=== PATIENT | male | born 1985 | race Caucasian/White ===

== ENCOUNTER 2023-07-29 21:53 | Emergency (ER) | payer OTHER ==
[2023-07-29 23:02] LABS: BASOPHILS # (AUTO) 0.1 10^3/uL (0.0-0.1); EOSINOPHILS # (AUTO) 0.4 10^3/uL (0.0-0.7); EOSINOPHILS % (AUTO) 5.3 %; HCT - HEMATOCRIT 41.8 % (42.0-52.0); HGB - HEMOGLOBIN 14.3 g/dL (14.0-18.0); LYMPHOCYTES # (AUTO) 2.9 10^3/uL (1.5-3.5); LYMPHOCYTES % (AUTO) 36.7 %; MEAN CORPUSCULAR HEMOGLOBIN 30.1 pg (27.0-31.0); MEAN CORPUSCULAR HGB CONC 34.2 g/dL (32.0-36.0); MONOCYTES # (AUTO) 0.7 10^3/uL (0.0-1.0); MONOCYTES % (AUTO) 8.8 %; NEUTROPHILS # (AUTO) 3.8 10^3/uL (1.5-6.6); NEUTROPHILS % (AUTO) 47.9 %; PLT - PLATELET COUNT 223 10^3/uL (130-450); RED BLOOD COUNT 4.75 10^6/uL (4.70-6.10); RED CELL DISTRIBUTION WIDTH 11.9 % (12.0-15.0); WHITE BLOOD COUNT 7.9 x10^3/uL (4.8-10.8)
[2023-07-29 23:13] LABS: ALBUMIN 4.6 g/dL (3.2-5.5); ALBUMIN/GLOBULIN RATIO 1.6 (1.0-2.2); BILIRUBIN,TOTAL 0.6 mg/dL (0.2-1.0); CALCIUM 9.7 mg/dL (8.5-10.3); POTASSIUM 3.7 mmol/L (3.5-4.5); TOTAL PROTEIN 7.4 g/dL (6.4-8.9)
[2023-07-30 00:55] LABS: BILIRUBIN,URINE NEGATIVE (NEGATIVE); GLUCOSE, URINE (UA) NEGATIVE (NEGATIVE); KETONES,URINE (UA) NEGATIVE (NEGATIVE); LEUKOCYTE ESTERASE, URINE NEGATIVE (NEGATIVE); NITRITE,URINE NEGATIVE (NEGATIVE); OCCULT BLOOD,URINE NEGATIVE (NEGATIVE); PH,URINE 6.5 PH (5.0-7.5); PROTEIN,URINE NEGATIVE (NEGATIVE); UROBILINOGEN,URINE 0.2 (NORMAL) E.U./dL (NORMAL)
--- NOTE | 2023-07-30 02:06 | ED Physician Documentation ---
History of Present Illness - Stated complaint Stated Complaint: LOWER BACK PX,,N/V - Chief complaint Chief Complaint: General - History obtained from History obtained from: Patient - Additonal information Additional information: HPI from patient. Patient c/o right flank pain radiating to right paralumbar region associated with nausea but no vomiting. Symptoms have been episodic x 2-3 days without inciting event nor exacerbating/ameliorating factors. He has had recurrent back pains in the past but this feels different in location and character. Also had right testicular pain earlier today but he feels this has resolved by the time of this exam. Denies fever, hematuria, urinary frequency Review of Systems Constitutional: reports: Reviewed and negative Cardiac: reports: Reviewed and negative Respiratory: reports: Reviewed and negative GI: reports: Abdominal Pain, Nausea. denies: Abdominal Swelling, Vomiting, Constipation, Diarrhea, Hematemesis, Bloody / black stool : denies: Dysuria, Frequency, Hematuria Skin: denies: Rash Musculoskeletal: reports: Back pain Neurologic: denies: Focal weakness, Numbness PD PAST MEDICAL HISTORY - Past Medical History Past Medical History: No Cardiovascular: None Respiratory: None Neuro: None Endocrine/Autoimmune: None GI: None : None HEENT: None Psych: None Musculoskeletal: None Derm: None - Past Surgical History Past Surgical History: No - Present Medications Home Medications: Ambulatory Orders Medication Instructions Recorded Confirmed No Known Home Medications 07/30/23 07/30/23 - Allergies Allergies/Adverse Reactions: Allergies Allergy/AdvReac Type Severity Reaction Status Date / Time No Known Drug Allergies Allergy Verified 07/29/23 22:01 - Social History Does the pt smoke?: No Smoking Status: Never smoker Does the pt drink ETOH?: No Does the pt have substance abuse?: No - Immunizations Immunizations are current?: Yes PD ED PE NORMAL - Vitals Vital signs reviewed: Yes - General General: Alert and oriented X 3, No acute distress, Well developed/nourished - Cardiac Cardiac: RRR, No murmur - Respiratory Respiratory: No respiratory distress, Clear bilaterally - Abdomen Abdomen: Normal bowel sounds, Soft, Non tender, Non distended PD ED PE EXPANDED - Male Male : Normal Exam, Circumcised, Testes descended leatha, Normal lie/cremastaric. No: Tenderness Results - Vitals Vitals: Oxygen O2 Source Room air - Labs Labs: Laboratory Tests 07/29/23 07/29/23 07/29/23 22:08 22:54 22:54 WBC 7.9 RBC 4.75 Hgb 14.3 Hct 41.8 L MCV 88.0 MCH 30.1 MCHC 34.2 RDW 11.9 L Plt Count 223 MPV 10.0 Neut # (Auto) 3.8 Lymph # (Auto) 2.9 [place] # (Auto) 0.7 Eos # (Auto) 0.4 Baso # (Auto) 0.1 Absolute Nucleated RBC 0.00 Nucleated RBC % 0.0 Sodium 136 Potassium 3.7 Chloride 103 Carbon Dioxide 26 Anion Gap 7.0 BUN 13 Creatinine 1.0 Estimated GFR (MDRD) 84 L Glucose 97 Calcium 9.7 Total Bilirubin 0.6 AST 23 ALT 21 Alkaline Phosphatase 65 Total Protein 7.4 Albumin 4.6 Globulin 2.8 Albumin/Globulin Ratio 1.6 Lipase 31 Urine Color YELLOW Urine Clarity CLEAR Urine pH 6.5 Ur Specific [place] <=1.005 Urine Protein NEGATIVE Urine Glucose (UA) NEGATIVE Urine Ketones NEGATIVE Urine Occult Blood NEGATIVE Urine Nitrite NEGATIVE Urine Bilirubin NEGATIVE Urine Urobilinogen 0.2 (NORMAL) Ur Leukocyte Esterase NEGATIVE Ur Microscopic Review NOT INDICATED Urine Culture Comments NOT INDICATED - Rads (name of study) CT A/P Relevant Findings:: Prelim report reviewed, See rad report PD Medical Decision Making - ED course Complexity details: reviewed results, re-evaluated patient, considered differential, d/w patient ED course: Normal CBC, ER abdominal panel, and UA. HPI is suggestive of renal colic to the point that CT A/P undertaken despite lack of hematuria. The CT is unremarkable although increased stool burden is noted. Patient declines analgesia throughout stay. Results d/w patient. We also discussed the testicular pain and the need to return immediately if this reoccurs, might need US in such a situation (US is not available at the time of this encounter, but the pain had resolved just prior to H+P). Etiology of patient's symptoms is not apparent at this time. Return precautions are reviewed. Departure - Departure Disposition: 01 Home, Self Care Clinical Impression: Flank pain Condition: Good Instructions: ED Flank Pain Uncertain Cause Follow-Up: ROSETTE BOWMAN DO [Primary Care Provider] - Comments: There were no concerning nor diagnostic findings on tonight's test, including the blood test, urinalysis, and the CT scan of your abdomen and pelvis. As we discussed, there was a large amount of stool in your colon on the CT scan; this is might be due to constipation, and you can try an [id number] laxative such as miralax to see if this relieves your flank pain. Forms: PCP List Discharge Date/Time: 07/30/23 06:29
[2023-07-30 02:33] LABS: CLARITY,URINE CLEAR (CLEAR)
[2023-07-30 06:31] VITALS: BP 114/80; O2SAT 100
--- NOTE | 2023-07-30 11:35 | CT Report ---
PROCEDURE: Abdomen/Pelvis WO INDICATIONS: right flank pain TECHNIQUE: A CT scan of the abdomen and pelvis was performed without the use of intravenous contrast. Images we re recorded and evaluated at appropriate window settings. Reformats: coronal and sagittal. For radiat ion dose reduction, the following was used: automated exposure control, adjustment of mA and/or kV ac cording to patient size. COMPARISON: None. FINDINGS: Image quality: Diagnostic Lower chest: Unremarkable lung bases Liver: Unremarkable liver Gallbladder and biliary system: Unremarkable, nondilated Pancreas: Unremarkable Spleen: Nonenlarged Adrenals: No discrete nodule Kidneys: No hydronephrosis or calcified obstructing stone identified. Lower pelvic right phlebolith. Limited evaluation of the solid organs in particular from noncontrast CT Vessels and lymph nodes: No abdominal aortic aneurysm. No pathologic lymph nodes by size criteria. Bowel and peritoneum: No evidence of small bowel obstruction, drainable abscess/pathologic ascites. A ppendix appears nondilated. Moderate stool burden. Body wall: Tiny fat-containing umbilical hernia. Pelvis: Bladder is unremarkable. The prostate is not well evaluated on this study. Bones: No acute or suspicious osseous finding. IMPRESSION: No acute abdominopelvic abnormality on this noncontrast imaging. No calcified stones or hydronephrosi s. Moderate stool burden. Agree with preliminary report. Reviewed by: Layton Zamudio MD on 07/30/2023 11:33 AM PST Approved by: Layton Zamudio MD on 07/30/2023 11:33 AM PST Station ID: [id number]
== END 2023-07-30 06:29 | disposition home or self-care (01) ==
LOC: ED 21:53
DX: R10.9 Unspecified abdominal pain (principal)
CPT/HCPCS: 36415; 80053; 81001; 81003; 83690; 85025; 87086; 99283; 99284

== ENCOUNTER 2023-09-14 10:39 | Outpatient (CLI) | payer OTHER ==
--- NOTE | 2023-09-14 11:14 | Sleep Patient Instructions ---
Sleep Center Visit Summary - Patient Visit Information Reason for Visit: Initial consult for evaluation of sleep disordered breathing and other sleep issues. - Patient Instructions Instructions Attached: Sleep Study Home Monitor Additional Instructions: You will be completing a sleep study, either an in-lab polysomnography (PSG) or home sleep study (HST). You will follow-up in the sleep care office after the sleep study is completed to hear the results and talk about therapy, if needed. You will be called by our office staff to schedule this appointment, but you may contact us with any questions. - Clinic Information Contact: [facility] [address] [place] [address] [email or web address] T: [phone]
--- NOTE | 2023-09-14 11:18 | SLEEP CARE CONSULTATION ---
Information from patient questionnaire entered by Shante Valencia. I have reviewed and concur with the information entered by Shante Valencia. This document represents the service I personally performed and the decisions made by me, Vee Ordonez ARNP. History of Present Illness Service Date and Time: 09/14/2023 1039 Reason for Visit: New patient Chief Complaint: reports: Unrefreshed sleep, Snoring, Fatigue, Frequent awakenings at night Date of Onset: FEW YRS Usual bedtime: 8PM-12AM Time it takes to fall asleep: VERY SHORT TIME Snores at night: Yes Observed to quit breathing while asleep: Yes Sleeps alone due to snoring: No Number of times waking at night: 1-2 Reasons for waking at night: reports: Choking, Snoring, Gasping for air, Pain, Bathroom Toss, Turn, or Twitch while sleeping: Yes Recalls having dreams: Yes Usually gets out of bed at: 5AM; weekends can sleep til 0800 when he can sleep in Feels refreshed in the morning: No Morning headache: Yes (2-3 times a week; resolve quickly- about 1 hr) Sleepy or fatigued during the day: Yes Ever fallen asleep while driving: No Takes day naps: Yes (Sat/Sun only if son naps) Dreams during day naps: Yes Prior sleep studies: No Additional HPI information: I had the pleasure of seeing JONE MONCADA today regarding the possibility of him having a sleep disorder. His current complaints are unrefreshed sleep, snoring, fatigue and frequent night awakenings. He says he was referred because of his snoring and occasional gasping in his sleep heard by his . His snoring is more "heavy" when laying on his back. His says she can still hear him when he falls asleep on the couch when she is in the bedroom. He never wakes up feeling rested in the mornings. He thinks it is mostly due to his son who interrupts their sleep. He states he can go to sleep fairly quickly whenever he lays down. He usually is very exhausted by the time he can lay down and falls asleep after they put their son down at 7 PM. Sometimes he stays up longer just because he has things he needs to take care of around the house. He does feel like he wakes up a few times a night and has woke up due to his own snoring. - Parasomnia Symptoms Ever been unable to move upon waking from sleep: No Walks in sleep: No Talks in sleep: Yes Ever acted out dreams in sleep: No Ever felt weak in the knees when startled or emotional: No Bothered by creepy, crawly, restless sensations in legs: Yes (about 1 time a year, pins/needles) Problems with memory or concentration: No Subjective Initial [place] Sleepiness Scale score: 12 (09/11/23) Past Medical History Past Medical History: reports: Anxiety, Depression Social History The patient's occupation is a AM. Patient is Single and lives in . Have you smoked in the past 12 months: No (vapes daily for 7 years) Alcohol use: No Caffeine use: Yes Caffeine amount and frequency: 3-4 DAILY Family History Family history of sleep disordered breathing: No Family Hx Sleep Apnea: Father: Snoring Allergies and Home Medications Known drug allergies: No Drug allergies reviewed: Yes Home medication list reviewed: Yes (as listed) Allergy and home medication list: Allergies No Known Drug Allergies Allergy (Verified 09/13/23 10:52) Home Medications Medication Instructions Recorded Confirmed Last Taken Type Ibuprofen See Rx Instructions .ROUTE .COMPLEX 09/14/23 09/14/23 Unknown History Review of Systems Weight gain over past 5 years: 10 Cardiovascular: denies: high blood pressure Gastrointestinal: reports: nausea, vomitting, diarrhea. denies: heartburn Neurological: denies: headaches, head trauma Psychiatric: reports: anxiety, depression Ear/Nose/Throat: reports: wisdom teeth removed. denies: injury to nose, tonsillectomy Endocrine: reports: sluggishness Musculoskeletal: reports: joint pain, neck pain, back pain, muscle pain or cramping, mobility problems Physical Exam Vital signs obtained and entered by: VEE LUIS-[place] Blood Pressure: 127/82 Cuff size: regular (right arm) Heart Rate: 80 O2 Saturation: 99 Height: 6 ft 2 in Weight: 173 lb 9.6 oz Body Mass Index: 22.3 BMI Classification: Normal Neck circumference: 14.5 (inches) Mouth and throat: normal Soft palate: long Hard palate: arched Uvula: normal Uvula visualization: 100% Mallampati Class I Tongue: normal in size Tonsils: 1+ Neck: normal w/o lymphadenopathy or thyromegaly Heart: regular rate and rhythm Lungs: clear bilaterally Impression and Plan 1. Suspected Obstructive Sleep Apnea-Hypopnea Syndrome, as suggested by a history of loud and irregular snoring, observed cessation of breath while asleep, gasping or choking in sleep, morning headache, frequent awakening during the night, unrefreshed sleep, and excessive daytime sleepiness. Narrow oropharynx and obesity are common predisposing factors for obstructive sleep apnea-hypopnea syndrome. I recommend proceeding to polysomnography to confirm the diagnosis and to assess severity. If the patient has significant sleep disordered breathing, a manual CPAP titration study will also be performed to find the optimal treatment pressure. I informed the patient of what the sleep studies involve and after some discussion, obtained agreement to proceed. The pathophysiology of obstructive sleep apnea-hypopnea syndrome was discussed with the patient and health risks of cardiovascular and cerebrovascular disease if not treated. Risks of drowsy driving discussed in detail and patient advised to avoid long distance driving and to bone char puller at the first sign of drowsiness. Patient agreed to plan. * Schedule polysomnography +- manual CPAP titration study and return in 1-2 weeks after the study to discuss result and initiate therapy. * Avoid long distance driving or driving when feeling sleepy. * Avoid alcohol, sedative and muscle relaxant around bedtime. * Review instructions provided by trained office staff on how to prepare for the sleep study. * Return for follow-up after sleep study completed. Plan: PSG/HST Visit Type: In Office Time Spent with Patient (minutes): 30 Provider Statement: I spent 100% of the Face to Face Visit with the patient with greater than 50% spent counseling the patient and coordination of care.
[2023-09-14 11:19] VITALS: BP 127/82; O2SAT 99
== END 2023-09-14 10:40 | disposition home or self-care (01) ==
LOC: SC 10:39
PROVIDERS: ATTEND Nurse Practitioner Family
DX: R06.83 Snoring (principal); G47.8 Other sleep disorders; R06.81 Apnea, not elsewhere classified; R51.9 Headache, unspecified; G47.10 Hypersomnia, unspecified; R53.83 Other fatigue; F32.A Depression, unspecified; F17.290 Nicotine dependence, other tobacco product, uncomplicated
CPT/HCPCS: 99203; 99212

== ENCOUNTER 2023-10-16 08:53 | Outpatient (CLI) | payer OTHER | END 2023-10-16 08:54 | disposition home or self-care (01) | LOC: SC 08:53 | PROVIDERS: ATTEND Nurse Practitioner Family | DX: G47.33 Obstructive sleep apnea (adult) (pediatric) (principal) | CPT/HCPCS: 95806 ==

== ENCOUNTER 2023-10-25 09:26 | Outpatient (CLI) | payer OTHER ==
--- NOTE | 2023-10-25 12:38 | MRI Report ---
PROCEDURE: Lumbar Spine WO INDICATIONS: LOW BACK PAIN TECHNIQUE: Noncontrast sagittal T1 spin echo and T2 fast echo, sagittal STIR, axial T1 and T2 fast spin echo thr ough the lumbar spine. In cases with scoliosis, additional coronal T2 fast spin echo may be performe d. COMPARISON: Correlation is made with the accompanying imaging. FINDINGS: Image quality: Diagnostic. Alignment and Curvature: There is normal bony alignment. Bone Marrow: Marrow is of normal overall signal. No acute vertebral body compression fractures. Spinal Cord: Conus medullaris terminates at the L1 level. Visualized cord demonstrates normal signa l and size. Paraspinous Soft Tissues: No paravertebral masses. T12-L1: Normal in appearance. L1-L2: Normal in appearance. L2-L3: No significant abnormality is seen. L3-L4: The disc height is well-preserved. There is loss of disc signal seen. Moderate disc bulge is seen, with a central disc protrusion. Note is made of an annular fissure posteriorly. Mild facet hypertrophy is seen. Moderate bilateral neural foraminal narrowing is seen. Moderate central canal narrowing is seen. L4-L5: The disc height is well-preserved. There is loss of disc signal seen. Moderate disc bulge is seen, with a central/right disc protrusion. Mild facet hypertrophy is seen. There is moderate to se carol right-sided and at least moderate left-sided neuroforaminal narrowing. At least moderate central canal narrowing is seen. L5-S1: The disc height is well-preserved. There is loss of disc signal seen. Minimal disc bulge can be seen at this level. Mild to moderate facet hypertrophy can be seen. No significant neural foramin al or central canal narrowing can be seen. IMPRESSION: Focal premature degenerative change can be seen at L3-L4 and L4-L5. Reviewed by: Gunner Milian MD on 10/25/2023 11:37 AM [place] Approved by: Gunner Milian MD on 10/25/2023 11:37 AM OCT[place] Station ID: [id number]
--- NOTE | 2023-10-25 12:39 | MRI Report ---
PROCEDURE: Thoracic Spine WO INDICATIONS: THORACIC AND LOW BACK PAIN TECHNIQUE: Noncontrast sagittal T1 spine echo and T2 fast spin echo, sagittal STIR, axial T1 and T2 fast spin ec ho through the thoracic spine. COMPARISON: Correlation is made with the accompanying imaging. FINDINGS: Image quality: Excellent. Alignment and Curvature: There is normal bony alignment. Bone Marrow: Marrow is of normal overall signal. No acute vertebral body compression fractures. Spinal Cord: Visualized spinal cord is normal in size and signal. Paraspinous Soft Tissues: No paravertebral masses. Miscellaneous: On axial images, central canal and foramina appear widely patent at all scanned level s. IMPRESSION: No significant thoracic spine MRI abnormality is seen. Reviewed by: Gunner Milian MD on 10/25/2023 11:38 AM OCT[place] Approved by: Gunner Milian MD on 10/25/2023 11:38 AM OCTAVIANO Station ID: [id number]
== END 2023-10-25 09:27 | disposition home or self-care (01) ==
LOC: DI 09:26
DX: M54.6 Pain in thoracic spine (principal); M47.816 Spondylosis without myelopathy or radiculopathy, lumbar region

== ENCOUNTER 2023-11-02 13:25 | Outpatient (CLI) | payer OTHER ==
--- NOTE | 2023-11-02 13:57 | Sleep Patient Instructions ---
Sleep Center Visit Summary - Patient Visit Information Reason for Visit: Sleep study follow-up - Patient Instructions Instructions Attached: CPAP Additional Instructions: You are being started on CPAP therapy with pressure setting at 4-15 cmH2O. You will need to call the sleep care office to set up your follow up once you have your CPAP machine to check compliance and response to therapy at that time. You may call the office with any concerns about pressure feeling too low or too much for adjustment, if needed. You should contact DME supplier for any questions or concerns about mask or equipment. Please call office to schedule a follow up appointment in the sleep care office one month after obtaining new device. - Clinic Information Contact: [facility] [address] [place] [email or web address] T: [phone]
--- NOTE | 2023-11-02 13:59 | SLEEP CARE CONSULTATION ---
Information from patient questionnaire entered by Shante Valencia. I have reviewed and concur with the information entered by hSante Valencia. This document represents the service I personally performed and the decisions made by , Vee Ordonez ARNP. History of Present Illness Service Date and Time: 11/02/2023 1325 Initial [place] Sleepiness Scale score: 12 (09/11/23) Current [place] Sleepiness Scale score: 9 (11/02/23) Additional HPI information: JONE MONCADA returns for follow up and results of the recently performed home sleep study. The sleep study showed mild obstructive sleep apnea with an average AHI of 7 and [place] oxygen saturation of 92%. I explained the pathophysiology behind obstructive sleep apnea. We then spent quite a bit of time discussing different treatment options. For mild obstructive sleep apnea, surgery and oral appliance are alternatives to nasal CPAP therapy but in moderate or severe cases, nasal CPAP is the most effective and reliable treatment. I reviewed the impact of weight changes on sleep apnea and strongly recommended losing weight. After some discussion, the patient opted to go with the nasal CPAP therapy. Nasal autoCPAP set at 4-15 cmH20 will be ordered with rationale explained. A manual titration study will be ordered if unable to find optimal pressure with office adjustments. I explained how CPAP machine works and what to expect when using the machine. Using CPAP every night in order to get used to it was emphasized. Patient advised to put CPAP mask on before getting into bed so as not to fall asleep without CPAP. To assist acclimation to CPAP use, it could also be used for a short time during day while reading or watching TV. The patient was instructed to call the CPAP supplier to discuss any mechanical problem that may occur. If the mask given is uncomfortable or is difficult to keep on through the night even with adjustment, contact the CPAP supplier as many will replace with another mask style if notified before 30 days. If snoring or perceives is not getting enough air or too much air from the machine, notify this office. Patient does not drink alcohol. Patient was cautioned about risks of drowsy driving until sleepiness symptoms resolve. Patient denies drowsy driving. Sleep Study - Results Type of Sleep Study: Home sleep study (COMPLETED 10/16/23) Prior sleep studies: No Polysomnography/Home Sleep Study results: Physician Impression: The quality of the study is good. The length of the study is adequate (> 240 minutes). Please also see the tabulated and graphic data. 1. Obstructive Sleep Apnea-Hypopnea (ICD-10 G47.33), mild, with an AHI of 7.0/hr and [place] SaO2 of 92%. During the study, the patient had 51 apneas (51 obstructive, 0 central, 0 mixed) and 3 hypopneas. The longest episode lasted 75.0 seconds. The respiratory events occurred more frequently during nonsupine sleep (supine AHI was 6.3 and non-supine, 20.34). Allergies and Home Medications Known drug allergies: No Drug allergies reviewed: Yes Home medication list reviewed: Yes (no changes) Allergy and home medication list: Allergies No Known Drug Allergies Allergy (Verified 10/31/23 09:35) Review of Systems Review of systems same as previous: Yes (NO CHANGE) Physical Exam Vital signs obtained and entered by: SHANTE Perry MA Blood Pressure: 138/77 (RIGHT ARM) Cuff size: regular Heart Rate: 94 O2 Saturation: 98 Height: 6 ft 2 in Weight: 180 lb 6.4 oz Body Mass Index: 23.1 BMI Classification: Normal Impression and Plan 1. Obstructive Sleep Apnea-Hypopnea Syndrome, mild, with lowest oxygen saturation of 92%. Obviously this is the cause of the patients symptoms of unrefreshed sleep, and excessive daytime sleepiness. Positive pressure therapy could benefit anxiety and depression. As mentioned above, the patient will be started on nasal autoCPAP therapy with pressure set at 4-15 cmH2O. A manual titration study will be completed if unable to find optimal treatment pressure with office adjustments. Compliance guidelines also reviewed. A copy of compliance guidelines will be given for reference at check out. Because the apnea is more severe non-supine, I instructed to avoid sleeping supine using pillow positioning until able to start CPAP use. * Nasal auto CPAP therapy, pressure at 4-15 cm H2O. * Attempt to lose weight. * Avoid alcohol consumption near bedtime. * Avoid supine sleep until using CPAP. * The patient is again cautioned about driving until sleepiness completely resolves. * Return one month after CPAP obtained. I will assess response to therapy and compliance at that time. Counseling Topics: Sleeping position, Weight control Prescriptions: Auto CPAP Follow up with Sleep Care in: other (Compliance follow up) Visit Type: In Office Time Spent with Patient (minutes): 17 Provider Statement: I spent 100% of the Face to Face Visit with the patient with greater than 50% spent counseling the patient and coordination of care.
[2023-11-02 14:00] VITALS: BP 138/77; O2SAT 98
== END 2023-11-02 13:26 | disposition home or self-care (01) ==
LOC: SC 13:25
PROVIDERS: ATTEND Nurse Practitioner Family
DX: G47.33 Obstructive sleep apnea (adult) (pediatric) (principal)
CPT/HCPCS: 99212

== ENCOUNTER 2024-01-30 14:30 | Outpatient (CLI) | payer OTHER ==
--- NOTE | 2024-01-30 14:57 | Sleep Patient Instructions ---
Sleep Center Visit Summary - Patient Visit Information Reason for Visit: First compliance follow-up - Patient Instructions Additional Instructions: You were here for follow up of CPAP therapy. You will be continued on CPAP therapy with pressure at 12-14 cmH2O. Please let us know if the pressure change is uncomfortable and we can make further adjustments of the pressure. You should follow up with sleep care in 1-2 months. You may contact us sooner for any questions or concerns. - Clinic Information Contact: [facility] [address] [place] [address] [email or web address] T: [phone]
--- NOTE | 2024-01-30 15:01 | SLEEP CARE CONSULTATION ---
Information from patient questionnaire entered by Shante Valencia. I have reviewed and concur with the information entered by Shante Valencia. This document represents the service I personally performed and the decisions made by me, Vee Ordonez ARNP. History of Present Illness Service Date and Time: 01/30/2024 1430 Previous diagnosis: Mild, Obstructive Sleep Apnea-Hypopnea Syndrome AHI: 7 (on 10/16/23) Reason for follow up: first compliance Equipment type: CPAP (RESMED Airsense 11, S/U 12/06/23) Equipment obtained from: Other ([facility]; got initial supplies) Mask style: Full face Mask brand: [employer] (Bryce full, large cushion) Backup mask available: No (will keep old mask when replaced) Last cushion change: 1 month Prior sleep studies: No Type of Sleep Study: Home sleep study (COMPLETED 10/16/23) HPI additional information: JONE MONCADA was diagnosed to have mild, AHI 7, obstructive sleep apnea- hypopnea syndrome and returned today for CPAP therapy first compliance follow- up. Sleep Study - Results Type of Sleep Study: Home sleep study (COMPLETED 10/16/23) Prior sleep studies: No CPAP Compliance Data - Data Reviewed with Patient Average duration of nightly device use: 4 HRS 10 MINS Compliance rate %: 10 (12/29/23-01/27/24; 01/27 days used) Current pressure setting (cmH2O): 4-15 (median 7.4, avg 13.4, max 13.8) Average residual AHI: 2.8 Central apnea: 0.7 Obstructive apnea: 0.6 Hypopnea: 1.4 Average large leak: 1 L/min Subjective Missed days of use due to: reports: illness (child was sick, teething), other (working nights) Patient concerns: reports: mask discomfort (mask fitting sometimes blocks nose), other. denies: aerophagia, air blowing in eyes, mask leak noise, condensation in mask/hose, nasal congestion, dry mouth, nose, throat, epistaxis Observed to snore while using device: No Current pressure setting perceived as: comfortable On therapy, patient: reports: sleeping better, awakening more refreshed. denies: being more awake and alert during the day, more rested overall, drowsiness while driving Initial [place] Sleepiness Scale score: 12 (09/11/23) Current [place] Sleepiness Scale score: 11 Allergies and Home Medications Known drug allergies: No Drug allergies reviewed: Yes Home medication list reviewed: Yes (Sumatriptin) Allergy and home medication list: Allergies No Known Drug Allergies Allergy (Verified 01/29/24 10:14) Review of Systems Review of systems same as previous: No (migraines) Physical Exam Vital signs obtained and entered by: VEE KAPADIA Blood Pressure: 135/82 Cuff size: regular (right arm) Heart Rate: 69 O2 Saturation: 98 Height: 6 ft 2 in Weight: 177 lb Body Mass Index: 22.7 BMI Classification: Normal Impression and Plan 1. Obstructive Sleep Apnea-Hypopnea Syndrome, mild, with poor treatment compliance and good apnea control. On CPAP therapy, the patient has better sleep quality and is more rested overall. He has had struggles with being able to use it daily sick and teething child at night that he needed to listen for at night. He found he could not hear them when he had the mask on one night and it made him wary to do it since his significant other was out of town. He really does not have any problem with the pressure but has been trying to find a comfortable size cushion for his fullface mask. He likes the mask and is going to get some more large cushions which seem to fit him better. He says he normally only sleeps 4 to 5 hours because he is working nights and then his young child will wake him up early. He is getting at the end of the month. The patients pressure will be changed to autoCPAP 12-14 cmH20 to reflect pressure being used. Patient advised to contact me if pressure change is uncomfortable so that it can be adjusted. Goals for apnea control discussed. He is now being treated for migraines. Patient's apnea severity and rationale for treatment to reduce apnea, improve sleep quality and reduce cardiovascular and cerebrovascular events was reviewed. I also reviewed the benefit of consistent device use of CPAP for depression/anxiety. * Change auto CPAP pressure to 12-14 cmH2O * Notify me if snoring with mask or feeling that the pressure is too much or too little * Attempt to lose weight * Call this office if any problems using CPAP * Return for follow up in 1-2 months, or sooner if concerns arise Adjust device pressure to (cmH2O): 12-14 Counseling Topics: Spare mask Follow up with Sleep Care in: 1-2 months Visit Type: In Office Time Spent with Patient (minutes): 20 Provider Statement: I spent 100% of the Face to Face Visit with the patient with greater than 50% spent counseling the patient and coordination of care.
[2024-01-30 15:07] VITALS: BP 135/82; O2SAT 98
== END 2024-01-30 14:31 | disposition home or self-care (01) ==
LOC: SC 14:30
PROVIDERS: ATTEND Nurse Practitioner Family
DX: G47.33 Obstructive sleep apnea (adult) (pediatric) (principal)
CPT/HCPCS: 99212; 99213

== ENCOUNTER 2024-03-15 10:47 | Outpatient (CLI) | payer OTHER ==
--- NOTE | 2024-03-15 11:21 | Sleep Patient Instructions ---
Sleep Center Visit Summary - Patient Visit Information Reason for Visit: 6-week follow-up for PAP therapy after pressure change - Patient Instructions Additional Instructions: You were here for follow up of CPAP therapy. You will be continued on CPAP therapy with pressure at 8-12 cmH2O. You should follow up with sleep care in 1-2 months. You may contact us sooner for any questions or concerns. - Clinic Information Contact: [facility] [address] [place] [address] [email or web address] T: [phone]
--- NOTE | 2024-03-15 11:25 | SLEEP CARE CONSULTATION ---
Information from patient questionnaire entered by Byron Valencia. I have reviewed and concur with the information entered by Byron Valencia. This document represents the service I personally performed and the decisions made by me, Vee Ordonez ARNP. History of Present Illness Service Date and Time: 03/15/2024 1047 Previous diagnosis: Mild, Obstructive Sleep Apnea-Hypopnea Syndrome AHI: 7 (10/16/23) Reason for follow up: other (6 WEEK F/U) Equipment type: CPAP (Airsense 11, s/u 11/2023) Equipment obtained from: Other ([facility]; getting supplies) Mask style: Full face Backup mask available: Yes Last cushion change: yesterday Prior sleep studies: No Type of Sleep Study: Home sleep study (COMPLETED 10/16/23) HPI additional information: JONE MONCADA was diagnosed to have mild, AHI 7, obstructive sleep apnea- hypopnea syndrome and returned today for CPAP therapy six week after pressure change follow-up. Sleep Study - Results Type of Sleep Study: Home sleep study (COMPLETED 10/16/23) Prior sleep studies: No CPAP Compliance Data - Data Reviewed with Patient Average duration of nightly device use: 3 HRS 7 MINS Compliance rate %: 16 (01/29/24-03/12/24; 21/44 days used) Current pressure setting (cmH2O): 8-12 Average residual AHI: 1.9 Central apnea: 0.7 Obstructive apnea: 0.3 Hypopnea: 0.9 Average large leak: 7 L/min Compliance data discussion: He normally sleeps 5 hours or so but he is having trouble keeping it on when he wakes up after sleeping for a few hours. Subjective Missed days of use due to: reports: illness (cracked ribs), travel, other ([facility]) Patient concerns: reports: mask discomfort (mask change improved comfort), nasal congestion, dry mouth, nose, throat. denies: aerophagia, air blowing in eyes, mask leak noise, condensation in mask/hose, epistaxis Observed to snore while using device: No Current pressure setting perceived as: comfortable On therapy, patient: reports: sleeping better, awakening more refreshed, being more awake and alert during the day, more rested overall. denies: drowsiness while driving Initial [place] Sleepiness Scale score: 12 (09/11/23) Current [place] Sleepiness Scale score: 8 (03/15/24) Allergies and Home Medications Known drug allergies: No Drug allergies reviewed: Yes Home medication list reviewed: Yes (no changes) Allergy and home medication list: Allergies No Known Drug Allergies Allergy (Verified 03/15/24 10:54) Review of Systems Review of systems same as previous: No (FREQUENT MIGRAINES, CRACKED RIB) Physical Exam Vital signs obtained and entered by: BYRON Perry MA Blood Pressure: 132/88 (LEFT ARM) Cuff size: regular Heart Rate: 75 O2 Saturation: 99 Height: 6 ft 2 in Weight: 182 lb 12.8 oz Body Mass Index: 23.4 BMI Classification: Normal Impression and Plan 1. Obstructive Sleep Apnea-Hypopnea Syndrome, mild, with poor treatment compliance and good apnea control. On CPAP therapy, the patient has better sleep quality and is more rested overall. He only sleeps about 5 hours and when he wakes up during the night he cannot go back to sleep with mask on. He states he does take a nap when his child naps during the day. He is a fast food shift supervisor worker. He has not been using the CPAP during those naps fro 1-2 hours. I advised him to use the CPAP when he naps which will boost his CPAP compliance. He voiced understanding. Patient's apnea severity and rationale for treatment to reduce apnea, improve sleep quality and reduce cardiovascular and cerebrovascular events was reviewed. I also reviewed the benefit of consistent device use of CPAP for migraines. * Continue auto CPAP pressure at 8-12 cmH2O * Notify me if snoring with mask or feeling that the pressure is too much or too little * Call this office if any problems using CPAP * Return for follow up in 1-2 months, or sooner if concerns arise Follow up with Sleep Care in: 1-2 months Visit Type: In Office Time Spent with Patient (minutes): 21 Provider Statement: I spent 100% of the Face to Face Visit with the patient with greater than 50% spent counseling the patient and coordination of care.
[2024-03-15 11:26] VITALS: BP 132/88; O2SAT 99
== END 2024-03-15 10:48 | disposition home or self-care (01) ==
LOC: SC 10:47
PROVIDERS: ATTEND Nurse Practitioner Family
DX: G47.33 Obstructive sleep apnea (adult) (pediatric) (principal)
CPT/HCPCS: 99212; 99213